=== PATIENT | female | born 1930 | race Caucasian/White ===

== ENCOUNTER 2016-08-05 19:20 | Emergency (ER) | payer MEDICARE ==
[2016-08-05 14:01] LABS: BASOPHILS 0.3 %; BASOPHILS ABSOLUTE 0.03 10/3/uL (0.0-0.16); EOSINOPHILS 0.8 %; EOSINOPHILS ABSOLUTE 0.09 10/3/uL (0.0-0.53); ER CBC TAT 0 Hrs 05 Mins; HEMATOCRIT 40.6 % (36.0-48.0); HEMOGLOBIN 12.7 g/dL (12.0-16.0); IMMATURE GRANULOCYTES 0.4 %; IMMATURE GRANULOCYTES ABSOLUTE 0.05 10/3/uL (0.0-0.11); LYMPHOCYTES 10.3 %; LYMPHOCYTES ABSOLUTE 1.17 10/3/uL (0.67-4.30); MEAN CORPUS HGB CONC 31.3 g/dL (32.0-36.0); MEAN CORPUSCULAR HEMOGLOB 24.9 pg (26.0-34.0); MEAN CORPUSCULAR VOLUME 79.6 fL (80-100); MEAN PLATELET VOLUME 9.1 fL (9.2-13.0); MONOCYTES 5.9 %; MONOCYTES ABSOLUTE 0.67 10/3/uL (0.21-1.20); NEUTROPHILS 82.3 %; NEUTROPHILS ABSOLUTE 9.32 10/3/uL (2.02-8.40); PLATELET COUNT 329 10/3/uL (150-400); RBC DISTRIBUTION WIDTH 17.4 % (12.0-16.0); WHITE BLOOD CELLS 11.3 10/3/uL (4.5-10.5)
[2016-08-05 14:03] LABS: MANUAL DIFF NO %
[2016-08-05 14:10] LABS: INTERNATIONAL NORMAL RATI 1.1 UNITS (-); PROTIME (NOT ORD) 14.1 SEC (12.0-14.5)
[2016-08-05 14:20] LABS: BUN (BLOOD UREA NITROGEN) 10 MG/DL (6-23); CHEST PAIN PROFILE TAT 0 Hrs 24 Mins; CHLORIDE, SERUM 100 MMOL/L (96-112); CO2 (CARBON DIOXIDE) 32 MMOL/L (24-34); CREATININE 1.05 MG/DL (0.55-1.02); GFR AFRICAN AMERICAN 55 ML/MIN (>=60); GFR NON AFRICAN AMERICAN 48 ML/MIN (>=60); GLUCOSE, SERUM 128 MG/DL (60-99); SODIUM, SERUM 140 MMOL/L (135-148); TROPONIN I <0.02 NG/ML (<0.05)
[~2016-08-05 19:20] MED LIST: ADVAIR250 INH; ALBUTEROL5 INH; AMITIZA24 PO; ANOROELLIPTA INH; ASA5GR PO; ASAB PO; ATEN25 PO; ATIVAN2 MG PO; ATROVENTUD INH; ATV.5 PO; ATV1 PO; BREO ELLIPTA INH; CALTRAT600 PO; CARDIZEM; CARTIA XT180 MG/24 PO; CEFT5 PO; CENTRUM PO; CO Q-10100 MG PO; COREG6 PO; DEMA20 PO; DILT-XR180 MG PO; DIOVAN HC1 PO; DIOVAN HC2 PO; DIOVAN HCT160 MG/25 PO; DUONEB INH; ELIQUIS 2.5 MG2.5 MG PO; ELIQUIS 5 MG TAB5 MG PO; FLUCON1 PO; FLUCON2 PO; HCTZ12.5 PO; IMDUR30 PO; IRON PO; ISOSORB DIN30 MG PO; KLOR-CON 1010 MEQ PO; L40 PO; LEVAQUIN5T PO; LIPITOR40 PO; LOP25 PO; MAGOX4 PO; MEDROLPAK4 PO; MVI PO; NEXIUM40 PO; NITROSTAT0.4 MG SL; NORV5 PO; NYS500UDL PO; P10 PO; P20 PO; P5 PO; PERFOROM INH; PLAVIX PO; PROTONI1 PO; PROVENTSOL INH; PROVHFA INH; PULRESP.5 INH; SINGULAIR1 PO; SPIRIVA INH; SWISH AND SWALLOW; SYMBICORT 160/41 INH INH; VENTOLIN HFA INH; VOLT50 PO; VOLTAREN1 % TOP; VOLTXR100 PO
[2016-08-29] MEDS ORDERED: ATEN25 PO (16:25)
[2016-08-29] MEDS ORDERED: ELIQUIS 2.5 MG2.5 MG PO (16:25)
[2016-08-29] MEDS ORDERED: DIOVAN HC1 PO (16:25)
[2016-08-29] MEDS ORDERED: ALBUTEROL0.083 % INH (16:25)
[2016-08-29] MEDS ORDERED: ATIVAN2 MG PO (16:25)
[2016-08-29] MEDS ORDERED: NITROSTAT0.4 MG SL (16:26)
[2016-08-29] MEDS ORDERED: NEXIUM40 PO (16:26)
[2016-08-29] MEDS ORDERED: VOLTXR100 PO (16:26)
[2016-08-29] MEDS ORDERED: CENTRUM PO (16:26)
[2016-08-29] MEDS ORDERED: IMDUR30 PO (16:26)
[2016-08-29] MEDS ORDERED: SINGULAIR1 PO (16:27)
[2016-08-29] MEDS ORDERED: CO Q PO (16:27)
[2016-08-29] MEDS ORDERED: DUONEB INH (16:27)
[2016-08-29] MEDS ORDERED: GINKGO BILO2 PO (16:27)
[2016-08-29] MEDS ORDERED: P10 PO (16:27)
[2016-08-29] MEDS ORDERED: VENTOLIN HFA INH (16:28)
[2016-08-29] MEDS ORDERED: ANOROELLIPTA INH (16:28)
[2016-08-29] MEDS ORDERED: ACET500CAP PO (16:28)
[2016-09-10] MEDS ORDERED: ZYVOXPO PO (09:36)
== END 2016-08-05 21:38 | disposition home or self-care (01) ==
LOC: ER 19:20
PROVIDERS: Emergency Medicine
DX: J45.901 Unspecified asthma with (acute) exacerbation (principal); I10 Essential (primary) hypertension; I25.2 Old myocardial infarction; I48.91 Unspecified atrial fibrillation; Z86.73 Personal history of transient ischemic attack (TIA), and cerebral infarction without residual deficits; J44.1 Chronic obstructive pulmonary disease with (acute) exacerbation; Z87.891 Personal history of nicotine dependence; Z88.2 Allergy status to sulfonamides; Z79.899 Other long term (current) drug therapy
CPT/HCPCS: 71020; 71250; 80048; 83735; 83880; 84484; 85025; 85610; 85730; 93005; 94640; 96365; 96375; 99285; A9270-GY; J1956; J2930